=== PATIENT | male | born 1960 | race Caucasian/White ===

== ENCOUNTER 2024-12-04 18:43 | Emergency (ER) | payer MEDICARE ==
[~2024-12-04] VITALS: Wt 114.8 kg
[2024-12-04] MEDS ORDERED: SODIUM CHLORIDE 0.9% 1,000 ML IV ONE (18:50)
[2024-12-04] MEDS ORDERED: diazePAM 10 MG/2 ML SYR IV ONE (18:50)
[2024-12-04] MEDS ORDERED: diphenhydrAMINE hydrochloride 50 MG/ML VIAL IV ONE (18:55)
[2024-12-04] MEDS ORDERED: diphenhydrAMINE hydrochloride 50 MG/ML VIAL ONE (19:12)
[2024-12-04] MEDS ORDERED: PROPOFOL 50 ML IV SCH (19:20)
[2024-12-04] MEDS ORDERED: PROPOFOL 100 ML IV ONE (19:37)
[2024-12-04 20:15] LABS: BASO % 0.3 % (0.0-1.0); EOS % 0.3 % (1.0-4.0); HEMATOCRIT 49.7 % (42.0-52.0); MEAN CORPUSCULAR HGB 30.4 pg (27.0-31.0); MEAN PLATELET VOLUME 10.9 fl (9.6-12.3); MONO # 0.5 10*3/uL (0.1-1.0); NEUT # 9.6 10*3/uL (2.3-7.9); NEUT % 83.9 % (47.0-73.0); PLATELET COUNT AUTOMATED 197 10*3/uL (130-400); RED CELL DISTRI WIDTH 13.9 % (0-14.5); WHITE BLOOD COUNT 11.4 10*3/uL (4.8-10.8)
[2024-12-04 20:23] LABS: BILIRUBIN Negative (Negative); BLOOD 1+ (Negative); CLARITY Clear (Clear); COLOR Yellow (Yellow); GLUCOSE Trace (Negative); KETONE Trace (Negative); LEUKO ESTERASE Negative (Negative); NITRITE Negative (Negative); SPECIFIC GRAVITY 1.015 (1.001-1.030); UROBILINOGEN 0.2 E.U./dl (0.0-1.0)
[2024-12-04 20:31] LABS: URINE AMPHETAMINES Negative (1000ng/ml); URINE BARBITURATES Negative (200ng/ml); URINE BENZODIAZEPINES Negative (200ng/ml); URINE CANNABINOIDS (THC) Negative (50ng/ml); URINE COCAINE Negative (300ng/ml); URINE METHADONE Negative (300ng/ml); URINE OPIATES Negative (300ng/ml); URINE PHENCYCLIDINE Negative (25ng/ml)
[2024-12-04 20:33] LABS: BUN 11 mg/dl (9-23); CHLORIDE 103 mmol/L (98-107); POTASSIUM 3.1 mmol/L (3.4-5.1)
[2024-12-04 20:34] LABS: ETHYL ALCOHOL < 3.0 mg/dl (<3)
[2024-12-04 20:42] LABS: BACTERIA 1+; WBC 0-2 wbc/hpf (0-5)
[2024-12-04] MEDS ORDERED: LORazepam 2 MG/ML VIAL ONE (20:56)
[2024-12-04] MEDS ORDERED: LEVETIRACETAM IN NACL (ISO-OS) 100 ML IV ONE ×2 (22:15→23:55)
[2024-12-04 23:25] LABS: ABG O2 SATURATION 98.7 % (94.0-98.0); ARTERIAL BLOOD GAS PH 7.358 (7.350-7.450); ARTERIAL BLOOD GAS PO2 150.5 mmHg (83.0-108.0)
[2024-12-05] MEDS ORDERED: Midazolam Hydrochloride 5 MG/5 ML VIAL IV ONE (02:05)
[2024-12-05] MEDS ORDERED: Midazolam Hydrochloride 5 MG/5 ML VIAL ONE (02:22)
[2024-12-05] MEDS ORDERED: PROPOFOL 100 ML IV ONE ×2 (05:36→08:58)
[2024-12-05] MEDS ORDERED: ETOMIDATE 20 MG/10 ML VIAL IV ONE (08:34)
[2024-12-05] MEDS ORDERED: ROCURONIUM BROMIDE 50 MG/5 ML SYRINGE IV ONE (08:34)
[2024-12-05] MEDS ORDERED: SODIUM CHLORIDE 0.9% 1,000 ML IV ONE (09:21)
== END 2024-12-05 09:45 | disposition short-term general hospital (02) ==
LOC: ED 18:43
PROVIDERS: Emergency Medicine
DX: R56.9 Unspecified convulsions (principal); E87.6 Hypokalemia; E87.20 Acidosis, unspecified; R11.2 Nausea with vomiting, unspecified; R73.9 Hyperglycemia, unspecified; R55 Syncope and collapse